=== PATIENT | female | born 1975 | race Caucasian/White ===

== ENCOUNTER → 2016-04-27 | Outpatient (CLI) | payer BC, OTHER ==
[~2016-04-27] MED LIST: CHEW500C2 PO; FLINCHW9 PO; PERCOCET PO; VITA500T53 PO
[2016-04-27 19:18] LABS: ALBUMIN 4.2 GM/DL (3.2-5.2); ALBUMIN/GLOBULIN RATIO 1.45 (1.00-1.93); ALKALINE PHOSPHATASE 70 U/L (45-117); ALT/SGPT 34 U/L (12-78); ANION GAP 9 MEQ/L (8-16); AST/SGOT 23 U/L (15-37); BILIRUBIN,TOTAL 0.7 MG/DL (0.2-1.0); BLOOD UREA NITROGEN 11 MG/DL (7-18); CALCIUM LEVEL 8.4 MG/DL (8.5-10.1); CARBON DIOXIDE LEVEL 26 MEQ/L (21-32); CHLORIDE LEVEL 106 MEQ/L (98-107); CREATININE FOR GFR 0.64 MG/DL (0.55-1.02); FERRITIN 20 NG/ML (8-252); GLOMERULAR FILTRATION RATE > 60.0 (>58); GLUCOSE, FASTING 85 MG/DL (70-105); MAGNESIUM LEVEL 2.3 MG/DL (1.8-2.4); PERCENT SATURATION 43.4 % (13.2-37.4); POTASSIUM SERUM 4.1 MEQ/L (3.5-5.1); SODIUM LEVEL 141 MEQ/L (136-145); TOTAL IRON BINDING CAPACITY 380 UG/DL (250-450); TOTAL PROTEIN 7.1 GM/DL (6.4-8.2)
[2016-04-27 19:22] LABS: BASO % 0.5 % (0.0-1.0); EOS # 0.4 K/mm3 (0.0-0.50); EOS % 6.5 % (0.0-3.0); LARGE UNSTAINED CELL # 0.1 K/mm3 (0.0-0.4); LARGE UNSTAINED CELL % 1.8 % (0.0-4.0); LYMPH # 2.1 K/mm3 (1.5-4.5); LYMPH % 36.4 % (24.0-44.0); MEAN CORPUSCULAR HEMOGLOBIN 30.6 pg (27.0-33.0); MEAN CORPUSCULAR HGB CONC 34.3 g/dl (32.0-36.5); MEAN CORPUSCULAR VOLUME 89.2 fl (80.0-96.0); MONO # 0.3 K/mm3 (0.0-0.8); MONO % 4.6 % (0.0-5.0); NEUTROPHILS # 2.9 K/mm3 (1.8-7.7); NEUTROPHILS % 50.3 % (36.0-66.0); PLATELET COUNT, AUTOMATED 221 k/mm3 (150-450); RED CELL DISTRIBUTION WIDTH 12.4 % (11.5-14.5); WHITE BLOOD COUNT 5.8 K/mm3 (4.0-10.0)
[2016-04-29 10:41] LABS: VITAMIN B12 LEVEL 991 PG/ML (247-911)
[2016-04-30 11:36] LABS: PRETREATED FOLATE FOR RBCFOL 18.2 NG/ML
== END ==
LOC: M LRY 11:15
PROVIDERS: ATTEND Surgery
DX: K91.2 Postsurgical malabsorption, not elsewhere classified (principal); Z98.84 Bariatric surgery status; E55.9 Vitamin D deficiency, unspecified

== ENCOUNTER → 2016-04-27 | Outpatient (REF) | payer OTHER ==
[2016-04-27 19:19] LABS: MEAN CORPUSCULAR HEMOGLOBIN 30.4 pg (27.0-33.0); MEAN CORPUSCULAR VOLUME 89.3 fl (80.0-96.0); RED CELL DISTRIBUTION WIDTH 12.4 % (11.5-14.5); WHITE BLOOD COUNT 5.8 K/mm3 (4.0-10.0)
[2016-04-27 19:22] LABS: ALBUMIN 4.3 GM/DL (3.2-5.2); ALBUMIN/GLOBULIN RATIO 1.54 (1.00-1.93); ALKALINE PHOSPHATASE 72 U/L (45-117); ALT/SGPT 34 U/L (12-78); ANION GAP 10 MEQ/L (8-16); AST/SGOT 20 U/L (15-37); BILIRUBIN,TOTAL 0.7 MG/DL (0.2-1.0); BLOOD UREA NITROGEN 11 MG/DL (7-18); CALCIUM LEVEL 8.6 MG/DL (8.5-10.1); CARBON DIOXIDE LEVEL 26 MEQ/L (21-32); CHLORIDE LEVEL 106 MEQ/L (98-107); CHOLESTEROL LEVEL 142 MG/DL (<200); CREATININE FOR GFR 0.63 MG/DL (0.55-1.02); GLOMERULAR FILTRATION RATE > 60.0 (>58); GLUCOSE, FASTING 86 MG/DL (70-105); POTASSIUM SERUM 4.1 MEQ/L (3.5-5.1); SODIUM LEVEL 142 MEQ/L (136-145); TOTAL PROTEIN 7.1 GM/DL (6.4-8.2); TRIGLYCERIDES LEVEL 85 MG/DL (<150)
== END ==
LOC: M SFHCLERA 11:21
PROVIDERS: ATTEND Family Medicine
DX: D50.0 Iron deficiency anemia secondary to blood loss (chronic) (principal); K74.0 Hepatic fibrosis; Z13.220 Encounter for screening for lipoid disorders; E55.9 Vitamin D deficiency, unspecified

== ENCOUNTER → 2018-04-04 | Outpatient (CLI) | payer BC, OTHER ==
--- NOTE | 2018-04-05 10:22 | REP ---
MRI CERVICAL SPINE: 04/04/2018. CLINICAL HISTORY: Neck and left shoulder pain. No known injury. Cervical disc degeneration. TECHNIQUE: Sagittal T1, T2, and STIR images with axial T1 and T2 sequences. FINDINGS: Sagittal images show normal lordosis is reduced with straightening of the spine. There is spondylosis at multiple levels with disc water signal reduced from C2-3 through C6-7. Disc space is narrowed at C5-6. The other disc space heights are maintained. Vertebral body heights and marrow signal are normal throughout. Dens is intact. Craniocervical junction shows less than 2 mm of cerebellar tonsillar ectopia, which is normal. Subarachnoid space is adequate at that level. At C2-3, there is no disc bulge herniation and no spinal or foraminal stenosis. At C3-4, there is a mild central disc bulge thinning the subarachnoid space, but the cross-sectional area of the canal was adequate. There is no cord compression and the foramina are ample. At C4-5, there is no disc bulge or herniation and no spinal or foraminal stenosis. At C5-6, there is a broad-based disc bulge with central disc protrusion. This flattens the ventral thecal sacs thinning the subarachnoid space and with the AP canal diameter 8.6 mm. Foramina are ample on the right and left side at this level. At C6-7, C7-T1, and T1-2, there is no disc bulge or herniation and no spinal or foraminal stenosis. IMPRESSION: 1. Broad-based disc bulge with central disc protrusion at C5-6 thinning the subarachnoid space and gently flattening the ventral cord surface contributing to central canal stenosis with AP canal diameter 8.6 mm. However, there is no myelomalacia, and the foramina are ample. 2. Mild central disc bulge at C3-4 thinning subarachnoid space but not causing cord compression, and the cross-sectional area of the canal is adequate. Foramina are ample. The other disc levels are unremarkable. Electronically Signed by Douglas Reyes MD 04/05/2018 11:33 A
== END ==
LOC: M RAD 13:09
PROVIDERS: ATTEND Physician Assistant
DX: M50.220 Other cervical disc displacement, mid-cervical region, unspecified level (principal)

== ENCOUNTER → 2018-07-20 | Outpatient (CLI) | payer BC, OTHER ==
[~2018-07-20] MED LIST changes: +TIZA2TAB4 PO; +TRAM50TA2 PO; +VITA500T17 PO; -VITA500T53 PO
[2018-07-20 13:43] LABS: BLOOD UREA NITROGEN 8 MG/DL (7-18); CALCIUM LEVEL 9.3 MG/DL (8.5-10.1); CARBON DIOXIDE LEVEL 27 MEQ/L (21-32); CHLORIDE LEVEL 104 MEQ/L (98-107); GLOMERULAR FILTRATION RATE > 60.0 (>58); GLUCOSE, FASTING 77 MG/DL (70-100); POTASSIUM SERUM 3.8 MEQ/L (3.5-5.1); SODIUM LEVEL 140 MEQ/L (136-145)
== END ==
LOC: M LAB 11:44
PROVIDERS: ATTEND Physician Assistant
DX: C56.9 Malignant neoplasm of unspecified ovary (principal)

== ENCOUNTER → 2020-01-27 | Outpatient (CLI) | payer BC, OTHER ==
[~2020-01-27] MED LIST changes: +CALC-362 PO; -CHEW500C2 PO; +PERC5TAB12 PO; +PROHANCE 279.3MG/ML 15ML VIAL As Ordered ONE; -TIZA2TAB4 PO; +TIZA2TAB6 PO
--- NOTE | 2020-01-27 12:21 | REP ---
INDICATION: PALPABLE LUMP RT BREAST. COMPARISON: Comparison mammography and sonography December 29, 2019. TECHNIQUE: Three [facility] MRI imaging was performed with a dedicated breast coil. Axial, coronal, and sagittal T1 and T2 weighted scans were obtained with and without fat saturation in the usual fashion. The study includes dynamically acquired post gadolinium-enhanced imaging with image subtraction. Maximum intensity projection and multi planar reformation imaging is included as well. This study is interpreted with the aid of [employer], an FDA approved computer aided detection (CAD) software program, on a dedicated breast MRI workstation. The gadolinium enhancement dose is 12 mL of intravenous ProHance. FINDINGS: There is an extensive pattern of symmetric fibroglandular tissue bilaterally. Minimal background parenchymal enhancement is seen. There is no evidence of axillary lymphadenopathy or breast cystic change. No mass lesion is seen in either breast. No suspicious morphologic abnormality is observed on high-resolution pre or postcontrast imaging. Dynamically acquired sequential postcontrast images show no suspicious evidence of enhancement and/or washout in either breast. Subtraction images show no significant abnormality. IMPRESSION: BI-RADS category 1-breast MRI findings. <Electronically signed by Mark Hogue > 01/27/20 [id number]
== END ==
LOC: M RAD 08:04
PROVIDERS: ATTEND Nurse Practitioner Adult Health
DX: N63.10 Unspecified lump in the right breast, unspecified quadrant (principal)
CPT/HCPCS: A9576; C8908

== ENCOUNTER → 2020-12-20 | Outpatient (CLI) | payer BC, OTHER ==
[~2020-12-20] MED LIST changes: -PROHANCE 279.3MG/ML 15ML VIAL As Ordered ONE; +TIZA1TAB12 PO; -TIZA2TAB6 PO
--- NOTE | 2020-12-20 10:35 | REPMRS ---
Patient History The patient states she has not had a clinical breast exam in over a year. No known family history of cancer. Patient states no breast complaints today. Patient has signed MRS History Sheet. Digital Woman Screen Mammo: December 20, 2020 - Exam #: [id number] Bilateral CC and MLO view(s) were taken. Technologist: Lisa Terry, Technologist Prior study comparison: December 29, 2019, bilateral digital mammo screening bilat, performed at [facility]. FINDINGS: The breast tissue is heterogeneously dense. This may lower the sensitivity of mammography. Screening. Digital screening (2D) mammography was performed bilaterally in the CC and MLO projections. Additionally, breast tomosynthesis (3D mammography) was performed bilaterally in the CC and MLO projections. Todays exam was compared to the prior exam/exams. By history, the patient has no complaints of a palpable breast abnormality or other significant breast complaints. The breasts are unchanged in size and shape.Once again, dense heterogenous fibroglandular elements are seen bilaterally in a stable appearing pattern but to such a degree that the sensitivity of the mammogram in detecting cancer is decreased. There are no myles-soft tissue densities or spiculated masses. There is no internal architectural distortion. Once again, stable benign appearing calcifications are seen.There are no suspicious myles-calcific clusters. Skin thickening or nipple retraction is not present. IMPRESSION: BI-RADS Category 2- Benign Findings. There is no evidence of malignant alteration of the breasts. Followup examination recommended in one year. The Volpara volumetric breast density category is C, the breasts are heterogenously dense which may obscure small masses. This mammogram was read with the assistance of [facility] [employer],an FDA approved computer aided detection system for mammography. The lifetime Tyrer-Cuzick score is 9 % Due to the density of the breasts or Tyrer Cuzick score of 20% or greater, MRI/whole breast screening ultrasound is warranted. Negative x-ray reports should not delay surgical consultation if a dominant or clinically suspicious mass is present. Not all breast cancers can be identified by mammography. Therefore, we recommend that you continue to perform regular breast self-examination and physical examination and then promptly contact your physician of any concerns or changes. Adenosis and dense breasts may obscure an underlying neoplasm. Assessment: BI-RADS/ACR category 2 mammogram. Benign Findings. Recommendation Routine screening mammogram of both breasts in 1 year. Electronically Signed By: Balta Jimenes DO 12/20/20 [id number]
== END ==
LOC: M WHC 06:53
PROVIDERS: ATTEND Nurse Practitioner Family
DX: Z12.31 Encounter for screening mammogram for malignant neoplasm of breast (principal)

== ENCOUNTER → 2022-05-01 | Outpatient (CLI) | payer BC, OTHER | LOC: M WHC 12:55 | PROVIDERS: ATTEND Nurse Practitioner Family | DX: Z12.31 Encounter for screening mammogram for malignant neoplasm of breast (principal); N64.89 Other specified disorders of breast ==

== ENCOUNTER → 2022-05-09 | Outpatient (CLI) | payer BC, OTHER | LOC: M WHC 10:26 | PROVIDERS: ATTEND Registered Nurse | DX: N63.10 Unspecified lump in the right breast, unspecified quadrant (principal); R92.8 Other abnormal and inconclusive findings on diagnostic imaging of breast; R93.89 Abnormal findings on diagnostic imaging of other specified body structures | CPT/HCPCS: 77065; G0279 ==